=== PATIENT | female | born 1950 | race Hispanic/Latino ===

== ENCOUNTER → 2018-03-24 | Outpatient (CLI) | payer OTHER ==
[~2018-03-24] MED LIST: ASPIRIN81 M1; CLONIDINE HCL0.1 MG PO; MELOXICAM; REGADENOSON 0.4 MG/5 ML SYR IV ONE; VERAPAMIL ER240 M1 PO; VERAPAMIL ER240 MG
--- NOTE | 2018-03-25 08:09 | Cardiology Report ---
DATE OF STUDY: LEXISCAN NUCLEAR STRESS TEST TECHNIQUE: The patient was given 10.7 mCi of Myoview. Resting images were obtained in the horizontal long axis, vertical long axis, and short axis. The patient was then hooked up to the EKG machine. Lexiscan was infused over 15 seconds. During Lexiscan infusion, the patient had no chest pain and no EKG changes. About 30 seconds after completion of Lexiscan infusion, the patient was given 30.0 mCi of Myoview. Stress images were obtained in the horizontal long axis, vertical long axis and short axis. RESULTS: 1. The resting EKG demonstrated normal sinus rhythm with some nonspecific ST and T-wave changes. 2. There were no EKG changes and no symptoms during Lexiscan infusion. 3. There was normal perfusion to all segments of the myocardium in both stress and rest. 4. There was normal left ventricular size and function with an ejection fraction of 67%. CONCLUSION: The patient has no evidence of cardiac ischemia. There is normal perfusion to all segments of the myocardium. There is normal left ventricular size and function with an ejection fraction of 67%. Job#: [id number] [id number]
== END ==
LOC: NM 09:48
PROVIDERS: ATTEND Internal Medicine Cardiovascular Disease
DX: R07.2 Precordial pain (principal)
CPT/HCPCS: 78452; 93017; A9502; J2785

== ENCOUNTER 2021-01-22 06:02 | Observation (INO) | payer OTHER ==
[~2021-01-22] VITALS: Ht 157.5 cm; Wt 72.1 kg
[~2021-01-22 06:02] MED LIST changes: +ALENDRONATE SOD70 MG PO; -ASPIRIN81 M1; +ASPIRIN81 M1 PO; +HYDROCHLOROTHIA25 MG PO; +LOSARTAN POTAS100 MG PO; -REGADENOSON 0.4 MG/5 ML SYR IV ONE
[2021-01-22] MEDS ORDERED: DEXAMETHASONE SOD PHOS 10 MG/1 ML VIAL ONE (06:23)
[2021-01-22] MEDS ORDERED: CELECOXIB 200 MG CAP ONE (06:23)
[2021-01-22] MEDS ORDERED: GABAPENTIN 300 MG CAP ONE (06:24)
[2021-01-22] MEDS ORDERED: SODIUM CHLORIDE 0.9% 50ML 100 ML ONE (06:24)
[2021-01-22] MEDS ORDERED: ROPIVACAINE 246.25 MG, EPINEPHRINE HCL 1:1000 1ML 0.5 MG, CLONIDINE HCL 0.08 MG in SODI... INJ ONE (06:30)
[2021-01-22] MEDS ORDERED: SODIUM CHLORIDE 0.9% 500ML 500 ML ONE (06:58)
[2021-01-22] MEDS ORDERED: Vancomycin IV 1,000 MG ONE (06:58)
[2021-01-22] MEDS ORDERED: TRANEXAMIC ACID 1,000 MG/10 ML ML ONE (06:58)
[2021-01-22] MEDS ORDERED: HYDROCODONE/APAP 5MG-325MG TAB PO PRN (09:15)
[2021-01-22] MEDS ORDERED: HYDROCODONE/APAP 7.5MG-325MG 1 EA TAB PO PRN (09:15)
[2021-01-22] MEDS ORDERED: ONDANSETRON HCL INJ 2MG/ML 2ML 2 MG/ML VIAL IV PRN (09:15)
[2021-01-22] MEDS ORDERED: KETOROLAC TROMETHAMINE 30 MG/ML VIAL IV PRN (09:15)
[2021-01-22] MEDS ORDERED: DIPHENHYDRAMINE HCL INJ 50 MG/ML VIAL IV PRN (09:15)
[2021-01-22] MEDS ORDERED: DOCUSATE SODIUM 100 MG CAP PO PRN (09:15)
[2021-01-22] MEDS ORDERED: ACETAMINOPHEN 650 MG SUPP PR PRN (09:15)
[2021-01-22] MEDS ORDERED: SODIUM CHLORIDE 0.9% 1000ML 1,000 ML IV SCH (09:15)
[2021-01-22] MEDS ORDERED: FENTANYL CITRATE/PF 100MCG/2 ML INJ ONE (09:57)
[2021-01-22 10:22] VITALS: BP 129/64
[2021-01-22 10:28] VITALS: BP 129/64
[2021-01-22 11:49] VITALS: BP 115/54
[2021-01-22] MEDS ORDERED: ACETAMINOPHEN 1000 MG/100 ML IV PRN (14:00)
[2021-01-22 15:32] VITALS: BP 125/63
[2021-01-22] MEDS ORDERED: SODIUM CHLORIDE 0.9% 50ML 50 ML ONE (15:55)
[2021-01-22] MEDS ORDERED: Cefazolin 1 GM in SODIUM CHLORIDE 0.9% 50ML 50 ML IV SCH (16:00)
[2021-01-22] MEDS ORDERED: CELECOXIB 100 MG CAP PO SCH (17:00)
[2021-01-22] MEDS ORDERED: ASPIRIN 325 MG TAB PO SCH (17:00)
[2021-01-22] MEDS ORDERED: ZOLPIDEM TARTRATE 5 MG TAB PO PRN (21:00)
== END 2021-01-22 18:00 | disposition home or self-care (01) ==
LOC: OR 06:02 → PACU V 09:51 → MED/SURG 11:09
PROVIDERS: ADMIT Specialist; ATTEND Specialist
DX: M17.11 Unilateral primary osteoarthritis, right knee (principal); Z01.812 Encounter for preprocedural laboratory examination; Z20.822 Contact with and (suspected) exposure to COVID-19; Z88.6 Allergy status to analgesic agent; K21.9 Gastro-esophageal reflux disease without esophagitis; Z87.440 Personal history of urinary (tract) infections; Z85.42 Personal history of malignant neoplasm of other parts of uterus; I10 Essential (primary) hypertension; Z90.49 Acquired absence of other specified parts of digestive tract
CPT/HCPCS: 27447; 73560; 86850; 86900; 86920; 97110; 97116; 97162; 97530; C1713 ×3; C1776 ×2; G0378; J0171; J0690; J1100; J2405; J2795; J3010; J3370; J7040; U0002

== ENCOUNTER 2024-06-03 22:15 | Inpatient (IN) | payer MEDICARE ==
[~2024-06-03] VITALS: Ht 157.5 cm; Wt 66.7 kg
[2024-06-03] MEDS: ONDANSETRON HCL INJ 2MG/ML 2ML 2 MG/ML VIAL IV STA (22:46)
[2024-06-03] MEDS: SODIUM CHLORIDE 0.9% 1000ML 1,000 ML IV STA (22:47)
[2024-06-03] MEDS: Morphine 4mg INJECTION 4 MG/ML INJ IV STA (22:47)
[2024-06-03 22:55] LABS: BASOPHILS % 0.3 % (0.0-1.0); EOSINOPHILS # (AUTO) 0.1 (0.0-0.4); EOSINOPHILS % 0.6 % (0.0-6.0); HEMATOCRIT 38.5 % (34.2-44.1); HEMOGLOBIN 12.5 g/dL (12.0-16.0); LYMPHOCYTES # (AUTO) 0.9 (1.0-3.2); LYMPHOCYTES % 6.7 % (18.0-39.1); MEAN CORPUSCULAR HEMOGLOBIN 30.6 pg (28-32); MEAN CORPUSCULAR HGB CONC 32.5 g/dL (31-35); MEAN CORPUSCULAR VOLUME 94.1 fL (81-99); MONOCYTES # (AUTO) 0.5 (0.2-0.8); MONOCYTES % 3.8 % (4.4-11.3); NEUTROPHILS % 88.3 % (38.7-80.0); PLATELET COUNT 286 x10e3/uL (140-360); RED BLOOD COUNT 4.09 x10e6/uL (3.6-5.1); RED CELL DISTRIBUTION WIDTH 14.6 % (11.7-14.4)
[2024-06-03 23:10] LABS: ALANINE AMINOTRANSFERASE 23 IU/L (0-55); ALBUMIN/GLOBULIN RATIO 1.1 (0.8-2.0); ALKALINE PHOSPHATASE 96 IU/L (40-150); ANION GAP 15.7 mmol/L (8-16); BILIRUBIN,TOTAL 0.5 mg/dL (0.2-1.2); BLOOD UREA NITROGEN 16 mg/dL (7-26); BUN/CREATININE RATIO 15 (6-25); CALCIUM 9.8 mg/dL (8.4-10.2); CARBON DIOXIDE 21 mmol/L (22-29); CHLORIDE 104 mmol/L (98-107); CREATINE KINASE 83 IU/L (29-168); CREATININE, SERUM 1.05 mg/dL (0.57-1.11); EST GLOMERULAR FILTRATION RATE 55 ML/MIN (>=60); GLUCOSE 142 mg/dL (74-118); LIPASE 35 U/L (8-78); POTASSIUM 3.7 mmol/L (3.5-5.1); SODIUM 137 mmol/L (136-145); TOTAL PROTEIN 7.8 g/dL (6.5-8.1)
[2024-06-03 23:13] LABS: BILIRUBIN,URINE NEGATIVE (NEGATIVE); CLARITY,URINE CLOUDY (CLEAR); COLOR,URINE YELLOW (YELLOW); GLUCOSE, URINE NEGATIVE (NEGATIVE); KETONES,URINE 1+ (NEGATIVE); LEUKOCYTE ESTERASE ,URINE TRACE (NEGATIVE); NITRITE,URINE NEGATIVE (NEGATIVE); PH,URINE 5.5 (5 - 7); PROTEIN,URINE DIPSTICK 1+ (NEGATIVE); URINE UROBILINOGEN 0.2 mg/dL (0.2 - 1)
[2024-06-03 23:19] LABS: BACTERIA,URINE MANY /HPF; EPITHELIAL CELLS,URINE FEW /LPF; RBC,URINE 21-50 /HPF (0-5); TRANSITIONAL EPI CELLS,URINE FEW; WBC,URINE (MAN) >50 /HPF (0-5)
[2024-06-03 23:22] LABS: TROPONIN I < 0.001 ng/mL (0-0.300)
[2024-06-03] MEDS ORDERED: IOPAMIDOL 370 MG/ML 100 ML INFUS..BTL INJ ONE (23:59)
[2024-06-04] MEDS: SODIUM CHLORIDE 0.9% 1000ML 1,000 ML IV SCH (02:59)
[2024-06-04 04:21] VITALS: TEMP 98.3
[2024-06-04] MEDS: ONDANSETRON HCL INJ 2MG/ML 2ML 2 MG/ML VIAL IV PRN (05:20)
[2024-06-04] MEDS: Morphine 2mg Syringe 2 MG/ML SYR IV PRN (05:20)
[2024-06-04 11:15] VITALS: PULSE 72; RESP 19
[2024-06-04 13:06] VITALS: BP 121/55; PULSE 67; RESP 16; TEMP 98.2; O2SAT 100
[2024-06-04 13:31] VITALS: BP 121/55; PULSE 67; RESP 16; TEMP 98.2; O2SAT 98
[2024-06-04] MEDS ORDERED: PROTONIX20 MG PO (15:36)
[2024-06-04 16:00] VITALS: BP 116/54; PULSE 70; RESP 16; TEMP 98.6
[2024-06-04 20:00] VITALS: BP 130/63; PULSE 70; RESP 20; TEMP 98.6; O2SAT 100
[2024-06-05] VITALS (7 sets, daily range): BP systolic 116–132; BP diastolic 55–64; PULSE 61–78; RESP 18–20; TEMP 97.7–98.6; O2SAT 99–100
[2024-06-05 08:26] LABS: BASOPHILS % 0.4 % (0.0-1.0); EOSINOPHILS # (AUTO) 0.1 (0.0-0.4); HEMATOCRIT 31.1 % (34.2-44.1); HEMOGLOBIN 9.8 g/dL (12.0-16.0); LYMPHOCYTES # (AUTO) 1.8 (1.0-3.2); LYMPHOCYTES % 25.1 % (18.0-39.1); MEAN CORPUSCULAR HEMOGLOBIN 30.7 pg (28-32); MEAN CORPUSCULAR HGB CONC 31.5 g/dL (31-35); MEAN CORPUSCULAR VOLUME 97.5 fL (81-99); MONOCYTES # (AUTO) 0.4 (0.2-0.8); MONOCYTES % 5.2 % (4.4-11.3); NEUTROPHILS # (AUTO) 4.7 (2.1-6.9); PLATELET COUNT 208 x10e3/uL (140-360); RED BLOOD COUNT 3.19 x10e6/uL (3.6-5.1); RED CELL DISTRIBUTION WIDTH 14.8 % (11.7-14.4); WHITE BLOOD COUNT 6.97 x10e3/uL (4.8-10.8)
[2024-06-05 08:56] LABS: ALBUMIN 2.8 g/dL (3.5-5.0); ANION GAP 14.4 mmol/L (8-16); BILIRUBIN,TOTAL 0.6 mg/dL (0.2-1.2); CALCIUM 7.6 mg/dL (8.4-10.2); CREATININE, SERUM 0.81 mg/dL (0.57-1.11); TOTAL PROTEIN 5.5 g/dL (6.5-8.1)
[2024-06-05 08:58] LABS: POTASSIUM 3.4 mmol/L (3.5-5.1)
[2024-06-05] MEDS: DEXTROSE 5%/0.9% SOD CHL 1,000 ML IV SCH (09:34)
[2024-06-05] MEDS: DEXTROSE 50% SYRINGE 50 ML IV ONE (09:34)
[2024-06-06] VITALS: BP 106/54; PULSE 65; RESP 20; TEMP 98.6; O2SAT 99
[2024-06-06 04:00] VITALS: BP 119/58; PULSE 64; RESP 20; TEMP 98.6; O2SAT 94
[2024-06-06 08:00] VITALS: BP 122/66; PULSE 67; RESP 18; TEMP 98; O2SAT 99
[2024-06-06 08:43] VITALS: BP 121/66; PULSE 67; RESP 18; TEMP 98; O2SAT 99
[2024-06-06] MEDS ORDERED: LACTULOSE SYRUP 20 GM/30 ML UDC PO PRN (09:30)
[2024-06-06] MEDS ORDERED: BISACODYL 10 MG SUPP PR ONE (09:30)
[2024-06-06 12:37] VITALS: BP 134/80; PULSE 69; RESP 18; TEMP 98.1; O2SAT 100
[2024-06-06 16:21] VITALS: BP 133/64; PULSE 66; RESP 18; TEMP 98.6; O2SAT 100
== END 2024-06-06 18:20 | disposition home or self-care (01) | DRG 389 ==
LOC: ER 22:20 → ERHOLD 06-04 02:29 → MED/SURG2 06-04 12:53
PROVIDERS: ADMIT Internal Medicine; ATTEND Internal Medicine
DX: K56.50 Intestinal adhesions [bands], unspecified as to partial versus complete obstruction (principal); N39.0 Urinary tract infection, site not specified; R31.29 Other microscopic hematuria; R73.9 Hyperglycemia, unspecified; E16.2 Hypoglycemia, unspecified; K21.9 Gastro-esophageal reflux disease without esophagitis; N94.89 Other specified conditions associated with female genital organs and menstrual cycle; I10 Essential (primary) hypertension; M19.91 Primary osteoarthritis, unspecified site; Z85.43 Personal history of malignant neoplasm of ovary; Z90.710 Acquired absence of both cervix and uterus; Z90.49 Acquired absence of other specified parts of digestive tract; Z79.899 Other long term (current) drug therapy; Z79.82 Long term (current) use of aspirin
CPT/HCPCS: 36415; 74018; 74177; 80053; 81001; 82550; 82948; 83690; 84484; 85025; 93005; 99284; J2270; J2405; J2470; J2543; J7030; J7042; J7799; Q9967

== ENCOUNTER → 2024-06-28 | Outpatient (REF) | payer MEDICARE ==
[~2024-06-28] MED LIST changes: +PROTONIX20 MG PO
== END ==
LOC: US 11:31
PROVIDERS: ATTEND Internal Medicine Gastroenterology
DX: R10.13 Epigastric pain (principal); I10 Essential (primary) hypertension; E66.3 Overweight; Z71.3 Dietary counseling and surveillance; Z78.9 Other specified health status
CPT/HCPCS: 76856

== ENCOUNTER → 2024-07-15 | Day surgery (SDC) | payer MEDICARE ==
[2024-07-08 11:58] LABS: BASOPHILS % 0.5 % (0.0-1.0); EOSINOPHILS # (AUTO) 0.1 (0.0-0.4); EOSINOPHILS % 1.9 % (0.0-6.0); HEMATOCRIT 34.5 % (34.2-44.1); HEMOGLOBIN 11.5 g/dL (12.0-16.0); LYMPHOCYTES # (AUTO) 1.6 (1.0-3.2); LYMPHOCYTES % 25.2 % (18.0-39.1); MEAN CORPUSCULAR HEMOGLOBIN 30.3 pg (28-32); MEAN CORPUSCULAR HGB CONC 33.3 g/dL (31-35); MEAN CORPUSCULAR VOLUME 90.8 fL (81-99); MONOCYTES # (AUTO) 0.5 (0.2-0.8); NEUTROPHILS # (AUTO) 4.2 (2.1-6.9); NEUTROPHILS % 65.1 % (38.7-80.0); PLATELET COUNT 292 x10e3/uL (140-360); RED CELL DISTRIBUTION WIDTH 14.1 % (11.7-14.4); WHITE BLOOD COUNT 6.43 x10e3/uL (4.8-10.8)
[~2024-07-15] MED LIST changes: +IRON PO; +LIDOCAINE HCL 2% LOCAL INJ 5 ML SDV VIAL INJ ONE; +OMEPRAZOLE40 MG PO; +PROPOFOL IV EMULSION 10 MG/ML 20 ML VIAL ONE
[2024-07-15] MEDS: LACTATED RINGER'S 1,000 ML ONE (07:41)
[2024-07-15 09:37] VITALS: TEMP 98.5
[2024-07-15 10:05] VITALS: BP 112/59; PULSE 69; RESP 16; O2SAT 98
== END | disposition home or self-care (01) ==
LOC: OR 10:30
PROVIDERS: ATTEND Internal Medicine Gastroenterology
DX: K29.50 Unspecified chronic gastritis without bleeding (principal); K21.9 Gastro-esophageal reflux disease without esophagitis; Z71.3 Dietary counseling and surveillance; I10 Essential (primary) hypertension; E66.3 Overweight; Z78.9 Other specified health status; I83.90 Asymptomatic varicose veins of unspecified lower extremity; D64.9 Anemia, unspecified; N39.0 Urinary tract infection, site not specified; M06.9 Rheumatoid arthritis, unspecified; Z88.8 Allergy status to other drugs, medicaments and biological substances; Z01.812 Encounter for preprocedural laboratory examination; Z79.82 Long term (current) use of aspirin; Z79.899 Other long term (current) drug therapy; Z68.28 Body mass index [BMI] 28.0-28.9, adult; Z85.42 Personal history of malignant neoplasm of other parts of uterus; Z92.3 Personal history of irradiation
CPT/HCPCS: 36415; 43239; 85025; 88305; 88342; J2003; J2704; J7121